=== PATIENT | female | born 1975 | race African-American/Black ===

== ENCOUNTER 2016-12-25 20:47 | Emergency (ER) | payer OTHER, MEDICAID ==
[~2016-12-25] VITALS: Ht 175.3 cm; Wt 86.2 kg
[~2016-12-25 20:47] MED LIST: ALPRAZOLAM0.25 MG ORAL; IBUPROFEN600 MG ORAL
[2016-12-25 21:02] VITALS: BP 120/67
[2016-12-25] MEDS ORDERED: LORazepam Inj 2mg/ml 1ml IV ONE (21:15)
[2016-12-25] MEDS ORDERED: Morphine Sulfate 4mg/ml Inj IVP ONE (21:15)
[2016-12-25] MEDS ORDERED: Ketorolac 30mg Inj IV ONE (21:15)
--- NOTE | 2016-12-25 21:17 | Emergency Room Report ---
History of Present Illness General Chief Complaint: Back Pain-No Injury Source: Patient Present Illness HPI The patient presents with 3 days of lower back pain. She's having difficulty curling into a ball in a forward direction. It radiates to both of her hips. She's taken Excedrin and Motrin 800 without relief. She thought it might be a kidney infection or kidney stone. She was seen at urgent care earlier today. They said her urine was clear and advised her to come to the emergency department. Her period started over the weekend and sometimes that does cause slight pain. Usually different than this. She denies dysuria or hematuria although she is on her cycle at this time. She denies fevers, cough, chest pain. There is no nausea vomiting or diarrhea. She moved her bowels earlier today and had difficulty getting off the toilet because the pain was severe and limited her movement. There's no weakness. Pain currently 7/10 aching. She did have a kidney stone 17 years ago. She does not remember what the workup was. She states the pain is similar to that. She tried a hot bath and this didn't help either. This reminded her of when she had a kidney stone with similar type of problem requiring visit to ED via ambulance. Allergies: Coded Allergies: AMOXICILLIN (Verified Allergy, Unknown, 06/28/15) TETRACYCLINE (Verified Allergy, Unknown, 06/28/15) Patient History Past Medical History: see triage record Social History: Denies: smoking Social History Narrative brought by friend Last Menstrual Period: on period Now: No : 4 Reviewed Nursing Documentation: PMH: Agreed, PSxH: Agreed Nursing Documentation-PMH Hx Neurological Problems: Yes - migraine Review of Systems All Other Systems: negative except mentioned in HPI Physical Exam Vital Signs Date Time Temp Pulse Resp B/P (MAP) Pulse Ox O2 Delivery O2 Flow Rate FiO2 12/25/16 20:51 97.9 60 18 120/67 98 Room Air Sp02 EP Interpretation: reviewed, normal General Appearance: well appearing, no apparent distress, GCS 15 Head: normocephalic Eyes: bilateral eye normal inspection, bilateral eye PERRL ENT: moist mucus membranes Neck: supple Respiratory: lungs clear, normal breath sounds Cardiovascular #1: regular rate, rhythm Cardiovascular #2: 2+ radial (R) Gastrointestinal: normal inspection, normal bowel sounds, non tender, no mass, non-distended Genitourinary: no CVA tenderness, CVA tenderness (L) - minimal, more muscular Musculoskeletal: gait/station normal, normal range of motion - with some muscle tenderness more on L lumbar area. Able to sit and stand., no calf tenderness, pelvis stable Neurologic: alert, oriented x3, motor strength/tone normal, DTRs symmetric, sensory intact, cerebellar normal Psychiatric: anxious Reflexes: 2+ knee (R), 2+ knee (L), 2+ ankle (R), 2+ ankle (L) Skin: normal inspection, warm/dry Medical Decision Making Diagnostic Impression: Primary Impression: Back pain Qualified Codes: M54.5 - Low back pain Additional Impression: Pancreatitis Qualified Codes: K85.90 - Acute pancreatitis without necrosis or infection, unspecified ER Course Patient presents with 3 days of lower back pain. Differential includes muscle strain and muscle spasm, disc disease, kidney stone, UTI, pyelonephritis others. Exam is more consistent with this being musculoskeletal. Evaluation will be with abdominal films, labs including urinalysis. She'll be treated with IV hydration, Toradol, Zofran, morphine and Ativan. Based on response to these medications and workup we may consider doing a CT scan or ultrasound. Labs significant for elevated Lipase (1648). Rest unremarkable. Ultrasound ordered. History and clinical exam against dx of pancreatitis. U/S normal. Patient improved. Discussed results and treatment plan with patient - observation at home. Patient stable for outpatient observation and treatment. Labs Test 12/25/16 20:56 12/25/16 21:25 Urine Color Yellow Urine Appearance Clear Urine pH 6 (4.5-8.0) Urine Specific Wister 1.015 (1.005-1.035) Urine Protein Negative (NEGATIVE) Urine Glucose (UA) Negative (NEGATIVE) Urine Ketones Negative (NEGATIVE) Urine Occult Blood 5+ (NEGATIVE) Urine Nitrite Negative (NEGATIVE) Urine Bilirubin Negative (NEGATIVE) Urine Urobilinogen 4 MG/DL (0.0-1.0) Urine Leukocyte Esterase Negative (NEGATIVE) Urine RBC 2-4 /HPF (0 - 2) Urine WBC 0-2 /HPF (0 - 2) Urine Squamous Epithelial Cells Few /LPF (NONE/OCC) Urine Bacteria Few /HPF (NONE) Urine HCG, Qualitative Negative White Blood Count 6.4 K/UL (4.8-10.8) Red Blood Count 4.01 M/UL (4.20-5.40) Hemoglobin 12.7 G/DL (12.0-16.0) Hematocrit 38.5 % (37.0-47.0) Mean Corpuscular Volume 96 FL (80-99) Mean Corpuscular Hemoglobin 31.7 PG (27.0-31.0) Mean Corpuscular Hemoglobin Concent 33.0 G/DL (32.0-36.0) Red Cell Distribution Width 12.2 % (11.6-14.8) Platelet Count 248 K/UL (150-450) Mean Platelet Volume 6.7 FL (6.5-10.1) Neutrophils (%) (Auto) 52.3 % (45.0-75.0) Lymphocytes (%) (Auto) 34.7 % (20.0-45.0) Monocytes (%) (Auto) 8.2 % (1.0-10.0) Eosinophils (%) (Auto) 3.9 % (0.0-3.0) Basophils (%) (Auto) 1.0 % (0.0-2.0) Sodium Level 141 MMOL/L (136-145) Potassium Level 4.2 MMOL/L (3.5-5.1) Chloride Level 106 MMOL/L (98-107) Carbon Dioxide Level 25 MMOL/L (21-32) Anion Gap 10 mmol/L (5-15) Blood Urea Nitrogen 12 mg/dL (7-18) Creatinine 1.0 MG/DL (0.55-1.30) Estimat Glomerular Filtration Rate > 60 mL/min (>60) Glucose Level 111 MG/DL (74-106) Calcium Level 8.8 MG/DL (8.5-10.1) Total Bilirubin 1.2 MG/DL (0.2-1.0) Direct Bilirubin 0.2 MG/DL (0.0-0.3) Aspartate Amino Transf (AST/SGOT) 12 U/L (15-37) Alanine Aminotransferase (ALT/SGPT) 16 U/L (12-78) Alkaline Phosphatase 49 U/L (46-116) Total Protein 6.9 G/DL (6.4-8.2) Albumin 3.7 G/DL (3.4-5.0) Globulin 3.2 g/dL Albumin/Globulin Ratio 1.2 (1.0-2.7) Lipase 1648 U/L (73-393) CT/MRI/US Diagnostic Results CT/MRI/US Diagnostic Results : Imaging Test Ordered: us abd Impression Findings: The liver, demonstrated part of the pancreas, gallbladder, aorta and IVC, both kidneys, spleen appear unremarkable. There is no biliary ductal dilatation identified. CBD is 6 mm. Doppler evaluation of the main portal vein shows patency. There is no ascites. No hydronephrosis seen. Last Vital Signs Date Time Temp Pulse Resp B/P (MAP) Pulse Ox O2 Delivery O2 Flow Rate FiO2 12/26/16 01:28 66 20 125/88 100 Room Air 12/25/16 22:00 97.9 Status: improved Disposition: HOME, SELF-CARE Condition: Improved Scripts Methocarbamol* (ROBAXIN*) 500 Mg Tablet 500 MG PO TID for muscle spasms, #8 TAB 0 Refills Prov: Bobo Kong M.D. 12/26/16 Hydrocodone Bit/Acetaminophen 5-325* (NORCO 5-325*) 1 Each Tablet 1 TAB ORAL Q6H Y for For Pain, #10 TAB 0 Refills Prov: Bobo Kong M.D. 12/26/16 Bobo Kong M.D. Dec 25, 2016 21:17
[2016-12-25 21:42] LABS: APPEARANCE,URINE CLEAR; KETONES,URINE NEGATIVE (NEGATIVE); LEUKOCYTE ESTERASE ,URINE NEGATIVE (NEGATIVE); NITRITE,URINE NEGATIVE (NEGATIVE); PH,URINE 6 (4.5-8.0); PROTEIN,URINE NEGATIVE (NEGATIVE); UROBILINOGEN,URINE 4 MG/DL (0.0-1.0)
[2016-12-25 21:51] LABS: EOSINOPHILS % (AUTO) 3.9 % (0.0-3.0); LYMPHOCYTES % (AUTO) 34.7 % (20.0-45.0); MEAN CORPUSCULAR HEMOGLOBIN 31.7 PG (27.0-31.0); MEAN CORPUSCULAR VOLUME 96 FL (80-99); MEAN PLATELET VOLUME 6.7 FL (6.5-10.1); MONOCYTES % (AUTO) 8.2 % (1.0-10.0); NEUTROPHILS % (AUTO) 52.3 % (45.0-75.0); PLATELET COUNT 248 K/UL (150-450); RED BLOOD COUNT 4.01 M/UL (4.20-5.40); RED CELL DISTRIBUTION WIDTH 12.2 % (11.6-14.8); WHITE BLOOD COUNT 6.4 K/UL (4.8-10.8)
[2016-12-25 21:52] LABS: BACTERIA,URINE FEW /HPF; SQUAMOUS EPITHELIAL CELL,UR FEW /LPF (NONE/OCC); WBC,URINE 0-2 /HPF (0 - 2)
[2016-12-25 22:18] LABS: ALANINE AMINOTRANSFERASE 16 U/L (12-78); ALBUMIN/GLOBULIN RATIO 1.2 (1.0-2.7); ANION GAP 10 mmol/L (5-15); ASPARTATE AMINO TRANSFERASE 12 U/L (15-37); CALCIUM 8.8 MG/DL (8.5-10.1); CARBON DIOXIDE 25 MMOL/L (21-32); CHLORIDE 106 MMOL/L (98-107); GLOMERULAR FILTRATION RATE > 60 mL/min (>60); LIPASE 1648 U/L (73-393); POTASSIUM 4.2 MMOL/L (3.5-5.1); SODIUM 141 MMOL/L (136-145); TOTAL PROTEIN 6.9 G/DL (6.4-8.2)
[2016-12-25 22:28] LABS: BILIRUBIN,DIRECT 0.2 MG/DL (0.0-0.3)
[2016-12-26] MEDS ORDERED: ROBAXIN500 MG PO (01:16)
[2016-12-26] MEDS ORDERED: NORCO 5-325 TA1 EACH ORAL (01:16)
[2016-12-26 01:28] VITALS: BP 125/88
--- NOTE | 2016-12-26 09:25 | Diagnostic Imaging Report ---
Indication:Abdominal pain Technique: Grayscale and duplex Doppler imaging of the abdomen performed. Comparison: None Findings: The liver, demonstrated part of the pancreas, gallbladder, aorta and IVC, both kidneys, spleen appear unremarkable. There is no biliary ductal dilatation identified. CBD is 6 mm. Doppler evaluation of the main portal vein shows patency. There is no ascites. No hydronephrosis seen. Impression: No acute findings.
--- NOTE | 2016-12-26 11:10 | Diagnostic Imaging Report ---
Indication: Abdominal pain Comparison: None Single view of the abdomen obtained Findings: Bowel gas pattern is nonspecific. No mass, ectopic calcifications, or abnormal gas collections are identified. The bones are unremarkable. Impression: No acute findings
== END 2016-12-26 01:29 | disposition home or self-care (01) ==
LOC: EMR 21:29
DX: M54.5 Low back pain (principal); K85.90 Acute pancreatitis without necrosis or infection, unspecified; Z88.0 Allergy status to penicillin; Z86.69 Personal history of other diseases of the nervous system and sense organs
CPT/HCPCS: 36415; 74000; 76700; 80053; 81003; 81025; 82248; 83690; 85025; 96361; 96374; 96375; 99284; J1885; J2270; J2405